=== PATIENT | male | born 1975 | race Caucasian/White ===

== ENCOUNTER 2018-07-05 07:40 | Inpatient (IN) | payer MEDICAID ==
[2018-07-04 20:40] VITALS: BP 148/87
[~2018-07-05] VITALS: Ht 190.5 cm; Wt 95.3 kg
[~2018-07-05 07:40] MED LIST: LACTATED RINGERS 1,000 ML IV SCH
[2018-07-05 09:06] LABS: BASOPHILS % 0.8 % (0.0-2.0); EOSINOPHILS % 3.7 % (0.0-5.0); HEMOGLOBIN. 14.8 g/dL (14.0-18.0); LYMPHOCYTES % 27.1 % (20.0-50.0); MEAN CORPUSCULAR HEMOGLOBIN 33.5 pg (28.0-32.0); MEAN CORPUSCULAR VOLUME 95.1 fL (80.0-94.0); MEAN PLATELET VOLUME 7.6 fl (7.4-10.4); MONOCYTES % 9.5 % (2.0-8.0); NEUTROPHILS % 58.9 % (40.0-76.0); PLATELET 165 x1000/uL (130-400); RED BLOOD CELL COUNT 4.42 mill/uL (4.7-6.1); RED CELL DISTRIBUTION WIDTH 12.9 % (11.6-14.6)
[2018-07-05 09:09] LABS: CLARITY URINE CLEAR (CLEAR); COLOR URINE YELLOW (YELLOW); KETONES URINE NEGATIVE (NEGATIVE); LEUKOCYTE ESTERASE URINE NEGATIVE (NEGATIVE); NITRITE URINE NEGATIVE (NEGATIVE); OCCULT BLOOD URINE NEGATIVE (NEGATIVE); PH URINE 5.5 (4.5-8.0); PROTEIN URINE NEGATIVE (NEGATIVE); SPECIFIC GRAVITY URINE 1.015 (1.005-1.030); UROBILINOGEN URINE 0.2 E.U./dL (0.2-1.0)
[2018-07-05 09:13] LABS: CHLORIDE 106 mEq/L (98-107)
[2018-07-05 09:15] LABS: INR 1.1; PARTIAL THROMBOPLASTIN TIME 27.1 sec (23.4-31.0); PROTHROMBIN TIME 10.6 sec (9.1-11.1)
[2018-07-05] MEDS ORDERED: MIDAZOLAM HCL 2 MG/2 ML VIAL ONE (11:40)
[2018-07-05] MEDS ORDERED: PROPOFOL 200MG/20ML VIAL IV ONE (11:40)
[2018-07-05] MEDS ORDERED: FENTANYL CITRATE/PF 50MCG/ML 2ML VIAL ONE (11:40)
[2018-07-05] MEDS ORDERED: BACITRACIN 15GM TUBE TOP ONE (12:15)
[2018-07-05] MEDS ORDERED: BUPIVACAINE HCL/PF 0.25% (2.5MG/ML) 10ML ONE (12:16)
[2018-07-05] MEDS ORDERED: VANCOMYCIN HCL 500 MG/VIAL ONE (12:16)
[2018-07-05] MEDS ORDERED: NORMAL SALINE 0.9% 10 ML SYR ONE (12:16)
[2018-07-05] MEDS ORDERED: BACITRACIN 50,000 UNITS/VIAL ONE (12:17)
[2018-07-05] MEDS ORDERED: ROCURONIUM BROMIDE 10MG/ML VIAL 5ML IV ONE (12:23)
[2018-07-05] MEDS ORDERED: HYDR-4009 PO (12:34)
[2018-07-05] MEDS ORDERED: GLYCOPYRROLATE 0.2 MG/ML 2ML VIAL ONE (14:50)
[2018-07-05] MEDS ORDERED: ACETAMINOPHEN 325MG TABLET PO PRN (15:30)
[2018-07-05] MEDS ORDERED: ZOLPIDEM TARTRATE 5MG TABLET PO PRN (15:30)
[2018-07-05] MEDS ORDERED: HYDROCODONE/ACETAMINOPHEN 10/325MG TABLET PO PRN ×2 (15:30)
[2018-07-05] MEDS ORDERED: ONDANSETRON HCL 4MG/2ML INJ IV PRN ×2 (15:30→16:00)
[2018-07-05] MEDS ORDERED: HYDROMORPHONE HCL/PF 2MG/ML CPJ IV PRN ×2 (16:00)
[2018-07-05] MEDS ORDERED: MEPERIDINE HCL/PF 25MG/ML CPJ IV PRN (16:00)
[2018-07-05] MEDS ORDERED: LABETALOL HCL 20MG/4ML CARPUJECT IV PRN (16:00)
[2018-07-05] MEDS ORDERED: HYDROMORPHONE PCA 10MG/50ML IV PRN (16:47)
[2018-07-05] MEDS ORDERED: DIPHENHYDRAMINE INJ IV PRN (16:48)
[2018-07-05] MEDS ORDERED: NALOXONE INJ IV PRN (16:48)
[2018-07-05] MEDS ORDERED: ONDANSETRON INJ IV PRN (16:48)
[2018-07-05 21:00] VITALS: BP 146/87
[2018-07-06] VITALS: BP 128/80
[2018-07-06] MEDS ORDERED: CEFAZOLIN 2,000 MG in DEXT 5% WATER 100 ML IV SCH (01:00)
[2018-07-06 04:00] VITALS: BP 115/74
[2018-07-06 08:00] VITALS: BP 106/79
[2018-07-06 09:30] VITALS: BP 123/73
== END 2018-07-06 10:20 | disposition home or self-care (01) | DRG 315 ==
LOC: OR 07:40 → 6EST 20:40
PROVIDERS: ADMIT Orthopaedic Surgery; ATTEND Orthopaedic Surgery
PROC: 0PSH04Z Reposition Right Radius with Internal Fixation Device, Open Approach (ICD-10-PCS; principal; 2018-07-05 11:30)
DX: S52.531A Colles' fracture of right radius, initial encounter for closed fracture (principal); S52.571A Other intraarticular fracture of lower end of right radius, initial encounter for closed fracture; W01.0XXA Fall on same level from slipping, tripping and stumbling without subsequent striking against object, initial encounter; Y93.89 Activity, other specified; Y92.89 Other specified places as the place of occurrence of the external cause; Y99.8 Other external cause status
CPT/HCPCS: 36415; 73110; 80048; 93005; 97166; A4216; C1713; J0690; J1170; J2250; J2405; J2704; J3010; J3370; J3490; J7050; J7060